=== PATIENT | male | born 1980 | race Hispanic/Latino ===

== ENCOUNTER 2021-12-20 14:44 | Emergency (ER) | payer SELFPAY ==
--- OUTSIDE RECORDS SUMMARY | 2021-12-20 14:47 | XMS REPORT | Continuity of Care Document ---
:1980 Author Organization [facility] Address [address] [place] [address] [address] [place] [address] Care Team Providers Name Role Phone LAVON RUBIO Attending Clinician Unavailable SAKSHI HENDERSON Attending Clinician Unavailable RAYNE UNDERWOOD Attending Clinician Unavailable Payers Payer Name Policy Type Policy Number Effective Date Expiration Date S ource Problems This patient has no known problems. Allergies, Adverse Reactions, Alerts This patient has no known allergies or adverse reactions. Medications This patient has no known medications. Procedures This patient has no known procedures. Encounters Start End Encounter Admission Attending Care Care Encounter Source Date/Time Date/Time Type Type Clinicians Facility Department ID 2021-11-26 2021-11-27 [facility] [id number] [place] 22:58:00 03:51:00 [facility] 2021-11-27 2021-11-27 Emergency [facility] [id number] [place] 00:43:21 00:53:58 SAKSHI [facility] 2020-11-22 2020-11-22 [facility] [id number] [place] 00:00:00 00:00:00 RAYNE [address] Results This patient has no known results.
[2021-12-20] MEDS ORDERED: KETOROLAC 30 MG/ML INJ ONE (16:27)
[2021-12-20] MEDS ORDERED: NA CHLORIDE 0.9% 1,000 ML ONE (16:27)
[2021-12-20 16:33] LABS: Urine Blood 2+ (Negative); Urine Glucose Negative (Negative); Urine Protein Negative (Negative); Urine Specific Gravity >=1.030 (1.005-1.030); Urine pH 5.5 (5.0-7.0)
[2021-12-20 16:41] LABS: Absolute Lymphocytes (CBC) 2.4 K/uL (0.7-4.9); Hematocrit 41.1 % (39.6-49.0); Lymphocytes % 18.9 % (15.3-44.8); MPV 8.4 fL (7.6-11.3); RBC Red Blood Cell Count 4.86 M/uL (4.33-5.43)
[2021-12-20 16:58] LABS: ALT/SGPT 24 U/L (12-78); AST/SGOT 20 U/L (15-37); Albumin 3.9 g/dL (3.4-5.0); Alkaline Phosphatase 76 U/L (45-117); BUN Blood Urea Nitrogen 27 mg/dL (7-18); Bicarbonate 28 mmol/L (21-32); Bilirubin Total 0.3 mg/dL (0.2-1.0); Glucose Level 86 mg/dL (74-106); Lipase 89 U/L (73-393); Potassium 3.7 mmol/L (3.5-5.1); Protein, Total 7.5 g/dL (6.4-8.2); Sodium Level 139 mmol/L (136-145)
[2021-12-20 17:07] LABS: Bilirubin Direct < 0.1 mg/dL (0-0.2)
--- NOTE | 2021-12-20 17:19 | RAD REPORT ---
EXAM DESCRIPTION: CT - Stone Protocol - 12/20/2021 4:49 pm CLINICAL HISTORY: FLANK PAIN COMPARISON: No comparisons TECHNIQUE: Axial 3 mm thick images were obtained without oral or IV contrast. The [id number] span s the entirety of the system including uppermost abdomen and lung bases. All CT scans are performed using dose optimization technique as appropriate and may include automated exposure control or mA/KV adjustment according to patient size. FINDINGS: Mild hydronephrosis of the proximal left collecting system down to the mid left ureter lev el where there is a 6 mm obstructing calculus. 2 mm nonobstructing calyx calculi seen in the lateral aspect of the upper pole portion left kidney. No right-sided hydronephrosis or right-sided calculi. N o suspicious renal masses. Isodense masses and pyelonephritis are not excluded on a stone protocol CT scan. No significant adrenal finding. No urinary bladder suspicious finding. Imaged portions of the liver, spleen and pancreas show no suspicious findings on non-contrast imaging . No gallbladder or biliary tree abnormality identified. No suspicious bowel findings. Appendix is normal. No mass or bulky lymphadenopathy. Small fat only left inguinal hernia present. No free air, free flui d or inflammatory stranding. No significant bony abnormality. IMPRESSION: Mild hydronephrosis of the left collecting system down to the mid ureter level from a 6 mm obstructing calculus. Punctate 2 mm sized nonobstructing calyx calculi present on the left as well. Isodense masses and pyelonephritis are not excluded on stone protocol technique.
[2021-12-20] MEDS ORDERED: TAMSULOSIN 0.4 MG SR CAP ONE (17:56)
[2021-12-20] MEDS ORDERED: MAGNESIUM SULFATE 1 gm IVPB 1 GM/100 ML BAG IV ONE (17:58)
--- NOTE | 2021-12-20 19:17 | ER ---
Nurse's Notes [facility] Name: David Mathew Age: 41 yrs Sex: Male : 1980 Arrival Date: 12/20/2021 Time: 15:30 Bed 27 Private MD: Diagnosis: Calculus of kidney with calculus of ureter-left Presentation: 12/20 15:31 Chief complaint: EMS states: patient was working outside doing yard work, when he began ap3 having left sided flank pain. It is reported patient was dx with kidney stones last week. Coronavirus screen: At this time, the client does not indicate any symptoms associated with coronavirus-19. Ebola Screen: No symptoms or risks identified at this time. Initial Sepsis Screen: Does the patient meet any 2 criteria? No. Patient's initial sepsis screen is negative. Does the patient have a suspected source of infection? No. Patient's initial sepsis screen is negative. Risk Assessment: Do you want to hurt yourself or someone else? Patient reports no desire to harm self or others. Onset of symptoms was December 20, 2021. 15:31 Method Of Arrival: EMS: [facility] ap3 15:31 Acuity: OLINDA 3 ap3 15:35 Care prior to arrival: Medication(s) given: Normal saline infusion, Toradol - 30mg IV ap3 initiated. 20 GA, in the left antecubital area. Triage Assessment: 15:34 General: Appears in no apparent distress. Behavior is calm, cooperative. Pain: ap3 Complains of pain in left flank Pain currently is 4 out of 10 on a pain scale. at worst was 9 out of 10 on a pain scale. Neuro: Level of Consciousness is awake, alert, obeys commands, Oriented to person, place, time, situation, Speech is normal. Cardiovascular: Patient's skin is warm and dry. Respiratory: Airway is patent Respiratory effort is even, unlabored, Respiratory pattern is. GI: Patient currently denies changes in bowel habbits. Historical: - Allergies: 15:32 No Known Allergies; ap3 - Home Meds: 15:32 Zoloft Oral [Active]; Latuda oral [Active]; ap3 - PMHx: 15:32 Anxiety; Depressive disorder; Hypertensive disorder; Hypoglycemia; ap3 - PSHx: 15:32 left ankle sx-metal plate; ap3 - Immunization history:: Client reports receiving the 2nd dose of the Covid vaccine, Flu vaccine is not up to date. - Social history:: Smoking status: Patient reports the use of cigarette tobacco products, smokes one-half pack cigarettes per day. Screenin:36 Abuse screen: Denies threats or abuse. Nutritional screening: No deficits noted. ap3 Tuberculosis screening: No symptoms or risk factors identified. 16:43 Fall Risk IV access (20 points). ss7 Assessment: 16:42 General: Appears in no apparent distress. Behavior is calm, cooperative. Neuro: No ss7 deficits noted. Cardiovascular: Heart tones S1 S2. Respiratory: No deficits noted. Reports Breath sounds are clear bilaterally. GI: No deficits noted. Bowel sounds present X 4 quads. Abd is soft and non tender. : Urine is clear, EENT: No deficits noted. Derm: No deficits noted. Musculoskeletal: No deficits noted. 19:45 Reassessment: Patient is alert, oriented x 3, equal unlabored respirations, skin bb warm/dry/pink. pt states he is feeling better now pt verbalized understanding of and agrees to plan of care discharge instructions given pt ambulated with steady gait to exit has someone coming to pick him up. Vital Signs: 15:31 BP 141 / 91; Pulse 75; Resp 17; Temp 98.8; Pulse Ox 98% ; Weight 88.45 kg; Height 5 ft. ap3 6 in. (167.64 cm); Pain 4/10; 16:36 BP 129 / 76; Pulse 59; Resp 18; Pulse Ox 97% on R/A; ss7 18:53 BP 105 / 67; Pulse 71; Resp 18; Pulse Ox 96% on R/A; ss7 19:47 BP 119 / 62; Pulse 85; Resp 16 S; Pulse Ox 97% on R/A; bb 15:31 Body Mass Index 31.47 (88.45 kg, 167.64 cm) ap3 ED Course: 15:30 Patient arrived in ED. as 15:32 Triage completed. ap3 15:36 Arm band placed on right wrist. ap3 15:55 Tuan Barton PA is PHCP. cp 15:55 Houston Roland MD is Attending Physician. cp 16:22 Radha Hebert RN is Primary Nurse. ss7 16:34 Basic Metabolic Panel Sent. ss7 16:34 CBC with Diff Sent. ss7 16:34 Hepatic Function Sent. ss7 16:34 Lipase Sent. ss7 16:35 Maintain EMS IV. Dressing intact. Site clean \T\ dry. Gauge \T\ site: LAC 20G. ss 7 16:43 Patient has correct armband on for positive identification. Placed in gown. Bed in low ss7 position. Call light in reach. Side rails up X2. 16:43 No provider procedures requiring assistance completed. ss7 16:48 CT Stone Protocol In Process Unspecified. EDMS 19:16 Gus Ellis MD is Referral Physician. cp 19:29 Attending Physician role handed off by Houston Roland MD cp 19:29 Carmelo Rachel MD is Attending Physician. cp 19:48 IV discontinued, intact, bleeding controlled, No redness/swelling at site. Pressure bb dressing applied. Administered Medications: 16:34 Drug: NS 0.9% 1000 ml Route: IV; Rate: 1 bolus; Site: left antecubital; ss7 16:34 Drug: Ketorolac 15 mg Route: IVP; Site: left antecubital; ss7 18:01 Follow up: Response: No adverse reaction ss7 18:01 Drug: Flomax (tamsulosin) 0.4 mg Route: PO; ss7 19:47 Follow up: Response: No adverse reaction ss7 18:01 Drug: Magnesium Sulfate 1 grams Route: IVPB; Infused Over: 20 mins; Site: left ss7 antecubital; Outcome: 19:17 Discharge ordered by MD. cp 19:47 Discharged to home ambulatory. bb 19:47 Condition: stable 19:47 Discharge instructions given to patient, Instructed on discharge instructions, follow up and referral plans. no driving heavy equipment, medication usage, Demonstrated understanding of instructions, follow-up care, medications, Prescriptions given X 5 19:48 Patient left the ED. bb Signatures: Dispatcher [employer] Emely Diehl Brenda RN RN bb Tuan Barton PA PA cp Prokisch, Amanda, RN RN ap3 Radha Hebert RN RN ss7
--- NOTE | 2021-12-20 19:18 | EDPHYS ---
Physician Documentation [facility] Name: David Mathew Age: 41 yrs Sex: Male : 1980 Arrival Date: 12/20/2021 Time: 15:30 Bed 27 Private MD: ED Physician Carmelo Rachel HPI: 12/20 16:30 This 41 yrs old Male presents to ER via EMS with complaints of Possible Kidney cp Stone. 16:30 The patient complains of pain in the left flank. cp 16:30 The pain radiates to the abdomen. Onset: The symptoms/episode began/occurred today. cp Associated signs and symptoms: Pertinent positives: nausea, Pertinent negatives: diarrhea, fever, pain radiating to the lower extremities, vomiting. Severity of pain: in the emergency department the pain is unchanged despite home interventions. The patient has experienced similar episodes in the past, today's symptoms are similar, to when the patient was apparently diagnosed with kidney stone. Historical: - Allergies: 15:32 No Known Allergies; ap3 - Home Meds: 15:32 Zoloft Oral [Active]; Latuda oral [Active]; ap3 - PMHx: 15:32 Anxiety; Depressive disorder; Hypertensive disorder; Hypoglycemia; ap3 - PSHx: 15:32 left ankle sx-metal plate; ap3 - Immunization history:: Client reports receiving the 2nd dose of the Covid vaccine, Flu vaccine is not up to date. - Social history:: Smoking status: Patient reports the use of cigarette tobacco products, smokes one-half pack cigarettes per day. ROS: 16:35 Abdomen/GI: Positive for nausea, Negative for vomiting, diarrhea, constipation. cp 16:35 : Positive for flank pain, Negative for testicular pain cp Exam: 16:40 Constitutional: The patient appears in no acute distress, alert, awake, cp non-diaphoretic, non-toxic, well developed, well nourished, uncomfortable. 16:40 Head/Face: Normocephalic, atraumatic. cp 16:40 Eyes: Periorbital structures: appear normal, Conjunctiva: normal, no exudate, no injection, Sclera: no appreciated abnormality, Lids and lashes: appear normal, bilaterally. 16:40 ENT: External ear(s): are unremarkable, Nose: is normal, Mouth: Lips: moist, Oral mucosa: moist, Posterior pharynx: Airway: no evidence of obstruction, patent. 16:40 Neck: ROM/movement: is normal, is supple, without pain, no range of motions limitations. 16:40 Chest/axilla: Inspection: normal, Palpation: is normal, no crepitus, no tenderness. 16:40 Cardiovascular: Rate: normal, Rhythm: regular, Edema: is not appreciated, JVD: is not appreciated. 16:40 Respiratory: the patient does not display signs of respiratory distress, Respirations: normal, no use of accessory muscles, no retractions, labored breathing, is not present, Breath sounds: are clear throughout, no decreased breath sounds, no stridor, no wheezing. 16:40 Abdomen/GI: Inspection: abdomen appears normal, Bowel sounds: active, all quadrants, Palpation: soft, in all quadrants, moderate abdominal tenderness, in the anterior aspect of left lateral abdomen and left upper quadrant, rebound tenderness, is not appreciated. Vital Signs: 15:31 BP 141 / 91; Pulse 75; Resp 17; Temp 98.8; Pulse Ox 98% ; Weight 88.45 kg; Height 5 ft. ap3 6 in. (167.64 cm); Pain 4/10; 16:36 BP 129 / 76; Pulse 59; Resp 18; Pulse Ox 97% on R/A; ss7 18:53 BP 105 / 67; Pulse 71; Resp 18; Pulse Ox 96% on R/A; ss7 19:47 BP 119 / 62; Pulse 85; Resp 16 S; Pulse Ox 97% on R/A; bb 15:31 Body Mass Index 31.47 (88.45 kg, 167.64 cm) ap3 MDM: 16:15 Patient medically screened. cp 17:00 Differential diagnosis: nephrolithiasis, pyelonephritis, UTI, diverticulitis, cp pancreatitis. 19:15 Data reviewed: vital signs, nurses notes, lab test result(s), radiologic studies, CT cp scan. 19:15 Counseling: I had a detailed discussion with the patient and/or guardian regarding: the cp historical points, exam findings, and any diagnostic results supporting the discharge/admit diagnosis, lab results, radiology results, to return to the emergency department if symptoms worsen or persist or if there are any questions or concerns that arise at home. Response to treatment: the patient's symptoms have markedly improved after treatment. ED course: VSS. Patient reports pain markedly improved and was observed sleeping in exam room. Will discharge to home for continued monitoring. 12/20 16:21 Order name: Basic Metabolic Panel; Complete Time: 17:31 cp 12/20 17:31 Interpretation: Normal except: CL 108; BUN 27; CRE 1.34; GFR 58. cp 12/20 16:21 Order name: CBC with Diff; Complete Time: 17:31 cp 12/20 17:32 Interpretation: Normal except: WBC 12.60; NEUT A 9.0. cp 12/20 16:21 Order name: Hepatic Function; Complete Time: 17:31 cp 12/20 17:32 Interpretation: Normal except: GLOB 3.6. cp 12/20 16:21 Order name: Lipase; Complete Time: 17:31 cp 12/20 16:21 Order name: CT Stone Protocol; Complete Time: 17:31 cp 12/20 16:33 Order name: Urine Dipstick-Ancillary; Complete Time: 17:31 EDMS 12/20 17:32 Interpretation: Normal except: UBLD 2+. cp 12/20 16:21 Order name: IV Saline Lock; Complete Time: 16:34 cp 12/20 16:21 Order name: Labs collected and sent; Complete Time: 16:34 cp 12/20 19:10 Order name: PO challenge cp Administered Medications: 16:34 Drug: NS 0.9% 1000 ml Route: IV; Rate: 1 bolus; Site: left antecubital; ss7 16:34 Drug: Ketorolac 15 mg Route: IVP; Site: left antecubital; ss7 18:01 Follow up: Response: No adverse reaction ss7 18:01 Drug: Flomax (tamsulosin) 0.4 mg Route: PO; ss7 19:47 Follow up: Response: No adverse reaction ss7 18:01 Drug: Magnesium Sulfate 1 grams Route: IVPB; Infused Over: 20 mins; Site: left 7 antecubital; Disposition: 12/21 06:37 Co-signature as Attending Physician, Carmelo Rachel MD. [email or web address] Disposition Summary: 12/20/21 19:17 Discharge Ordered Location: Home cp Problem: new cp Symptoms: have improved cp Condition: Stable cp Diagnosis - Calculus of kidney with calculus of ureter - left cp Followup: cp - With: Gus Ellis MD - When: 2 - 3 days - Reason: pain continues Discharge Instructions: - Discharge Summary Sheet cp - Kidney Stones cp - Renal Colic cp Forms: - Medication Reconciliation Form cp - Thank You Letter cp - Antibiotic Education cp - Prescription Opioid Use cp - Work release form [email or web address] Prescriptions: - Flomax 0.4 mg Oral capsule - take 1 capsule by ORAL route once daily As needed 1/2 hour following the same cp meal each day; 7 capsule; Refills: 0, Product Selection Permitted - Ibuprofen 800 mg Oral Tablet - take 1 tablet by ORAL route every 8 hours As needed take with food; 30 tablet; cp Refills: 0, Product Selection Permitted - Augmentin 875-125 mg Oral Tablet - take 1 tablet by ORAL route every 12 hours for 7 days; 14 tablet; Refills: 0, cp Product Selection Permitted - Zofran 4 mg Oral Tablet - take 1 tablet by ORAL route every 12 hours As needed; 20 tablet; Refills: 0, cp Product Selection Permitted - Tylenol-Codeine #3 300 mg-30 mg Oral - take 2 tablet by ORAL route every 8 hours; 20 tablet; Refills: 0, Product cp Selection Permitted Signatures: Dispatcher [employer] EDMS Tuan Barton PA PA cp Kiana Hermosillo RN RN ap3 Carmelo Rachel MD MD mh7 Radha Hebert RN RN ss7 Corrections: (The following items were deleted from the chart) 12/20 19:18 19:17 Calculus of ureter - left cp cp
[2021-12-20 21:30] VITALS: TEMP 98.8
[2021-12-20 21:35] VITALS: BP 119/62; O2SAT 97
== END 2021-12-20 19:48 | disposition home or self-care (01) ==
LOC: ER 14:44
DX: N20.2 Calculus of kidney with calculus of ureter (principal); I10 Essential (primary) hypertension; F17.210 Nicotine dependence, cigarettes, uncomplicated
CPT/HCPCS: 36415; 74176; 76377; 80048; 80076; 81003; 83690; 85025; 96374; 96375; 99284; J3475; J7030; Q9967